=== PATIENT | male | born 1935 | race Caucasian/White ===

== ENCOUNTER 2016-09-15 07:50 | Day surgery (SDC) | payer MEDICARE, OTHER ==
--- NOTE | 2016-09-08 15:35 | PCM.ANEPRE ---
Anesthesia Pre-Op Review Reason for Review: pulmonary concerns- COPD, home O2 at noc Anesthesia Recommendations: Proceed with Procedure Chart Reviewed by: Candido Ray MD, MD September 08, 2016 15:35
[~2016-09-15] VITALS: Ht 180.3 cm; Wt 80.3 kg
[2016-09-15] VITALS (10 sets, daily range): BP systolic 116–157; BP diastolic 55–69; PULSE 44–51; RESP 10–16; O2SAT 96–99
--- NOTE | 2016-09-15 06:40 | PCM.HPANE ---
Patient Data Surgeon Admitting Provider: Attending Provider:Antolin Gaines DO Primary Care Physician:Devonte Persaud Other Provider:Dinorah Levine Anesthesia Reason for Visit Right Torn Medial Meniscus Ht/WT & BMI Height (Feet): 5 Height (Inches): 11 Weight (Kilograms): 84.10 Body Mass Index 25.00 Allergies Coded Allergies: No Known Allergies (Verified , 12/13/13) Past Anesthesia History Anesthesia History: Denies:: Abnormal Airway, Anesthesia Reactions, Difficult Intubation Diabetes History Hx Diabetes?: Yes (Hgb A1c 6.0 06/22/16) Glycemic Control: Insulin & Oral Medication MRSA MRSA: No Medications Blood Thinner: Aspirin Hypertension Medication: Yes Home Meds Incl Beta Teddy: No Reported Medications Diclofenac Gel (Voltaren Gel)100 Gm Tube1 Applic TOPICAL PRN For Pain #1 TUBE 09/08/16 Cholecalciferol (Vitamin D3) (Vitamin D3)2,000 Unit Tablet4,000 Unit PO DAILY 09/08/16 Montelukast (Singulair)10 Mg Ygqunt38 Mg PO HS Ref 0 09/08/16 Primidone 50 Mg Mvkmga783 Mg PO HS 30 Days 09/08/16 Pravastatin 40 Mg Cnixnl12 Mg PO DAILY Ref 0 09/08/16 Multivitamin (Multi Vitamin Daily)1 Each Tablet1 Each PO DAILY 30 Days Ref 0 09/08/16 Lisinopril 10 Mg Hiznre61 Mg PO DAILY 30 Days Ref 0 09/08/16 Insulin Glargine (Lantus U100 Insulin Vial)100 Unit/Ml Vial28 Unit SUBQ DAILY # 1 VIAL Ref 0 09/08/16 Ipratropium/Albuterol Sulfate (Iprat-Albut 0.5-3(2.5) mg/3 mL Inhalant Soln)3 Ml Ampul.neb3 Ml IH TID Ref 0 09/08/16 Glimepiride 4 Mg Tablet2 Mg PO DAILYAC #30 TABLET Ref 0 09/08/16 Fluoxetine 20 Mg Dgoyhl77 Mg PO DAILY Ref 0 09/08/16 Budesonide 1 Mg/2 Ml Ampul.neb0.5 Mg IH BID 09/08/16 Arformoterol Tartrate (Brovana)15 Mcg/2 Ml Vial.neb15 Mcg IH BID 09/08/16 Aspirin 81 Mg Kcipeq83 Mg PO DAILY Ref 0 09/08/16 Discontinued Reported Medications Albuterol Sulfate (Albuterol 5% Inh Soln)5 Mg/1 Ml Solution2.5 Mg NEB QID #1 BOTTLE Ref 0 Mix in nebulizer reservoir with sodium chloride nebulizer solution. As needed for Wheezing/sob 11/25/13 Cholecalciferol (Vitamin D3) (Vitamin D)2,000 Unit Capsule2,000 Unit PO DAILY 30 Days Ref 0 11/25/13 Vit C/E/Zn/Coppr/Lutein/Zeaxan (Ocuvite Lutein & Zeaxanthin Cp)1 Each Capsule1 Each PO DAILY 11/25/13 Primidone 50 Mg Pvuqib70 Mg PO HS 30 Days 11/25/13 Albuterol HFA 8.5 Gm Hfa.aer.ad2 Puff IH Q4-6H PRN For Shortness of Breath #1 INHALER Ref 0 as needed for wheezing/sob 11/25/13 Fluoxetine 20 Mg Hgxqrpf14 Mg PO DAILY 30 Days Ref 0 11/25/13 Diclofenac Gel (Voltaren Gel)100 Gm Gel..gram.1 % Tp Qid as needed 11/25/13 Glimepiride 1 Mg Tablet1 Mg PO DAILYAC #30 TABLET Ref 0 11/25/13 Insulin Glargine (Lantus U100 Insulin Vial)100 Unit/Ml Vial18 Unit SUBQ HS #1 VIAL Ref 0 11/25/13 Pravastatin 40 Mg Tpfote12 Mg PO PM 30 Days Ref 0 take in the evening for high cholesterol 11/25/13 Fluticasone/Salmeterol (Advair 250-50 Diskus)60 Puff/Inh Disk1 Puff IH BID #1 DISK Ref 0 11/25/13 Lisinopril 10 Mg Nkhmkx58 Mg PO DAILY 30 Days Ref 0 11/25/13 Multivitamin (Multi Vitamin Daily)1 Each Tablet1 Each PO DAILY 30 Days Ref 0 11/25/13 Aspirin (Aspir 81)81 Mg Tablet.dr81 Mg PO PM Ref 0 11/25/13 Discontinued Scripts Levofloxacin (Levaquin)750 Mg Eqcnyu688 Mg PO DAILY 3 Days Prov:Augustine Crawley MD 12/17/13 Prednisone (PredniSONE)20 Mg Ijdvow47 Mg PO DAILY 1 Day Prov:Augustine Crawley MD 12/17/13 Tiotropium [place] (Spiriva)18 Mcg Cap.w.dev18 Mcg IH DAILY #1 PKG Ref 0 Prov:Reji Ellis DO 11/27/13 History History of ENT Problems?: Yes HEENT History: Positive for:: Cataracts (both eyes cataract removal ) Hearing Problem Denies:: Abnormal Airway Difficult Intubation Dysphagia Glaucoma Sinus Problem TMJ Denture Type: Full- Upper Full- Lower Teeth Condition: No Teeth Hx of Heart Problems?: Yes Cardiovascular History: Positive for:: Hypertension Irregular Heartbeat (bradycardia ) Denies:: AICD Cardiac Surgery Chest Pain Congestive Heart Failure Edema Heart Murmur Pacemaker Peripheral Vascular Thrombophlebitis Hx of Respiratory Problem?: Yes Respiratory History: Positive for:: COPD Dyspnea Oxygen Administration (2L at noc) Use of Inhalers / NEBS Denies:: Asthma Chest Surgery Emphysema Hemoptysis Pneumonia Tuberculosis Use of C-PAP Machine Hx Neurologic Problems?: Yes Neurological History: Denies:: Alzheimer's Disease CVA Dementia Dizziness Headaches Multiple Sclerosis Parkinson's Disease (benign tremor -involuntary-intermittent ) Seizures Hx of GI Problems?: Yes Hx of Problems?: No Genitourinary History: Denies:: HX of Hemodialysis Kidney Stones Urinary Tract Infection HX of Peritoneal Dialysis: No Male Hx: Denies:: Prostate Problems Scrotal Mass Testicular Surgery Skin History: Denies:: History Skin Disorders? Pressure Ulcers Hx Musculoskeletal Problems?: Yes Musculoskeletal History: Positive for:: Musculoskeletal Trauma (right knee current admission problem) Osteoarthritis Denies:: Back Injury Fibromyalgia Joint Replacement Systemic Lupus Hx of Psycho/Social Problems?: Yes Psycho Social History: Positive for:: Hx Depression Denies:: Anxiety Bipolar Disorder Suicide Attempt Hx Surgeries?: Yes (galbladder removed, Right shoulder surgery, hernia repair, bunion removal ) Hx Any Other Health Problems?: Yes Other History: Positive for:: Endocrine Disease Hospitalization (hospitalized for COPD ) Denies:: Cancer Thyroid Disease History Blood Transfusions: Positive for:: Accept Blood Products? Denies:: Blood Transfuse Reaction Blood Transfusions Hx Diabetes: Yes (Hgb A1c 6.0 06/22/16) Hx Alcohol Use: NoHx Substance Use: No Smoking Status: Former Smoker Have You Smoked inLast 12 mo: No Stop/Bang S-Snoring: Do You Snore Loudly: No T-Tired: feel tired, fatigued: No O-Obsered: Observed not breath: No P-Blood Pressure: treated: Yes B- Body Mass Index > 35 kg/m2: No A- Age over 50: Yes N- Neck Large Circumference: No G- Gender Male: Yes ZOHAIB Total Score: 3 ZOHAIB Risk Assessment: Low Risk, <3 Yes Risk Assessment Category Category 1A: Patient has history of documented sleep apnea, and HAS NOT received any narcotic, sedative or anesthesia administration during this stay. Category 1B: Patient has history of documented sleep apnea, and HAS received any narcotic , sedative or anesthesia administration during this stay Category 2: Patient has SUSPECTED Obstructive Sleep Apnea, and HAS received any narcotic , sedative or anesthesia administration during this stay. Category 3: Patient has SUSPECTED Obstructive Sleep Apnea and HAS NOT received narcotic, sedative or anesthesia administration during this stay. Category 4: Outpatient in Procedural Areas with known sleep apnea or who screen positive for High Risk via the STOP/BANG questionnaire. Exam Exam General Appearance: Alert, Oriented X3, Cooperative, No Acute Distress HEENT/AIRWAY: MP 2 Lungs: Clear to Auscultation, Normal Air Movement Heart: Exam Unremarkable, Regular Rate/Rhythm, No Murmurs/Rubs/Gallops Plan Impression Patient chart reviewed, patient interviewed and anesthestic plan with risks, benefits, and alternatives discussed, and informed consent obtained. NPO per Anesth. Guidelines: Yes ASA Physical Status: ASA2 Mod Systemic Disease Anesthetic Plan: GA Bene/Risks/Altern/Consents: Yes HP Complete Prior to Induction: Yes Carlo Richardson MD September 15, 2016 06:39
[~2016-09-15 07:50] MED LIST: ARFO15VI2 IH; ASPI-973 PO; BUDE1AMP2 IH; CHOL200025 PO; DICL100G8 TOPICAL; FLUO20TA28 PO; GLIM4TAB2 PO; INSU100V7 SUBQ; IPRA3AMP IH; LISI10TA PO; MONT10TA20 PO; MULT-1018 PO; PRAV40TA PO; PRIM50TA PO
[2016-09-15] MEDS ORDERED: fentaNYL-PF 50 mCg/mL 2 mL Inj ONE (07:51)
[2016-09-15] MEDS ORDERED: Ondansetron 2 mg/mL 2 mL Inj ONE (07:51)
[2016-09-15] MEDS ORDERED: Propofol 10,000 mCg/mL 20 mL Inj ONE (07:51)
[2016-09-15] MEDS ORDERED: Dexamethasone 4 mg/mL Inj ONE (07:51)
[2016-09-15] MEDS ORDERED: Glycopyrrolate 0.2 MG/ML 1mL Inj ONE (07:51)
[2016-09-15] MEDS: Lactated Ringer's 1,000 ML IV SCH ×2 (07:54→09:30)
[2016-09-15] MEDS ORDERED: Lactated Ringer's 500 ML IV PRN (10:09)
[2016-09-15] MEDS ORDERED: Lactated Ringer's 1,000 ML IV SCH (10:09)
[2016-09-15] MEDS ORDERED: Atropine 0.4 mg/mL Inj IVPUSH PRN (10:10)
[2016-09-15] MEDS ORDERED: Labetalol 5 mg/mL 4 mL Inj IV PRN (10:10)
[2016-09-15] MEDS ORDERED: Phenylephrine 10,000 mCg/mL Inj IVPUSH PRN (10:10)
[2016-09-15] MEDS ORDERED: HYDROmorphone 1 mg/mL Inj IVPUSH PRN (10:10)
[2016-09-15] MEDS ORDERED: MetoCLOpramide 5 mg/mL 2 mL Inj IVPUSH PRN (10:10)
[2016-09-15] MEDS ORDERED: fentaNYL-PF 50 mCg/mL 2 mL Inj IVPUSH PRN (10:10)
[2016-09-15] MEDS ORDERED: Dexamethasone 4 mg/mL Inj IVPUSH PRN (10:10)
[2016-09-15] MEDS ORDERED: Ondansetron 2 mg/mL 2 mL Inj IVPUSH PRN (10:10)
[2016-09-15] MEDS ORDERED: EPHEDrine Sulfate 50 mg/mL Inj IVPUSH PRN (10:10)
[2016-09-15] MEDS ORDERED: Lidocaine 2%-Epi 1:100,000 20 mL Inj INFILTRATE ONE (10:17)
[2016-09-15] MEDS ORDERED: Ropivacaine-PF 0.5% 30 mL Inj INFILTRATE ONE (10:36)
[2016-09-15] MEDS ORDERED: Acetaminophen IV 1,000 MG in IV Premix 1 EACH IV ONE (10:55)
[2016-09-15] MEDS ORDERED: HYDROcodone-APAP 5-325 mg Tablet PO PRN (10:55)
[2016-09-15] MEDS ORDERED: hydrOXYzine Pamoate 25 mg Capsule PO PRN (10:55)
--- NOTE | 2016-09-15 10:59 | PCM.ANEP1 ---
Post Anesthesia PACU Phase 1 Assessment Vital Signs Vital Signs Date Time Temp Pulse Resp B/P Pulse Ox O2 Delivery O2 Flow Rate FiO2 09/15/16 10:55 51 12 129/57 98 Simple Mask 5 09/15/16 10:45 51 12 122/59 97 Simple Mask 5 09/15/16 10:43 35.7 49 12 116/55 97 Simple Mask 5 09/15/16 08:35 36.0 44 16 157/63 99 Room Air Anesthetic Administered: GA Level of Alertness: Sleepy, easy to arouse ARMENDARIZ's with Equal Strength: Yes Pain: No Nausea or Vomiting: No CV Function and Hydration: No Airway Device: Oxygen Delivery: Simple Mask Lungs: Clear to Auscultation, Normal Air Movement Dermatome Level: Full Sensation PACU Phase 2 Assessment Complications: No Follow up Care: No Patient Instructions Provided: N/A Carlo Richardson MD September 15, 2016 10:59
--- NOTE | 2016-09-15 11:10 | OP ---
[address] [address] OPERATIVE REPORT PATIENT: KENDRA RUDD : 1935 MR#: [id number] ADMIT: 09/15/2016 JOB ID: [id number] DATE OF SURGERY: 09/15/2016 PREOPERATIVE DIAGNOSIS(ES): Right knee torn medial meniscus. POSTOPERATIVE DIAGNOSIS(ES): Right knee torn medial meniscus. PROCEDURE: Right knee video arthroscopy with partial medial meniscectomy. SURGEON: Antolin Gaines MD. ANESTHESIA: General. INDICATIONS: The patient is a 80-year-old male who twisted his knee injuring his right medial meniscus this winter. He had an MRI confirming the diagnosis. We discussed treatment options for this, and he wished to proceed with a knee arthroscopy. We discussed the risks, benefits and possible complications of surgery including, but not limited to, injury to nerves and vessels, infection, bleeding, incomplete relief symptoms, stiffness and need for additional procedures. The patient had good understanding. All questions were answered. He wished to proceed. PROCEDURE IN DETAIL: The patient was brought to the operating room. He was given a preoperative general anesthetic. The right lower extremity was sterilely prepped and draped. An incision was made over the anterolateral knee at the level of joint line. A blunt trocar was introduced into the knee. Inspection was undertaken. He was found to have a tear in the medial meniscus posterior horn. A medial portal was established under needle localization. His articular surface was found to be in relatively good condition considering his age with some minor C1 and C2 changes. His meniscus tear was resected back to a stable base with a combination of biters and bhavesh. His ACL was found to be intact. His lateral compartment was in excellent condition without tear. His patellofemoral compartment had some minor degenerative changes. C2 chondromalacia otherwise in good condition. The scope was then removed. The portals were closed with interrupted nylon suture. Naropin was added as an adjunct local anesthetic. Sterile dressings were applied. The patient tolerated the procedure well. Blood loss was minimal. POSTOPERATIVE PROTOCOL: Have the patient weightbear to tolerance. Ice and elevate. Use crutches or walker as needed, and follow up in two weeks or sooner if needed.
== END 2016-09-15 23:59 | disposition home or self-care (01) ==
LOC: SAS 07:50
PROVIDERS: ATTEND Orthopaedic Surgery
DX: S83.231D Complex tear of medial meniscus, current injury, right knee, subsequent encounter (principal); I10 Essential (primary) hypertension; E78.5 Hyperlipidemia, unspecified; E11.9 Type 2 diabetes mellitus without complications; J44.9 Chronic obstructive pulmonary disease, unspecified; N40.0 Benign prostatic hyperplasia without lower urinary tract symptoms; K21.9 Gastro-esophageal reflux disease without esophagitis; F32.9 Major depressive disorder, single episode, unspecified; W00.0XXD Fall on same level due to ice and snow, subsequent encounter; Y92.9 Unspecified place or not applicable; Z79.84 Long term (current) use of oral hypoglycemic drugs; Z79.4 Long term (current) use of insulin; Z99.81 Dependence on supplemental oxygen; Z79.82 Long term (current) use of aspirin; Z87.891 Personal history of nicotine dependence
CPT/HCPCS: 29881; J0131; J1100; J2405; J2795; J3010; J7120

== ENCOUNTER 2016-10-14 09:25 | Emergency (ER) | payer MEDICARE, OTHER ==
[~2016-10-14] VITALS: Ht 180.3 cm; Wt 81.8 kg
[2016-10-14 09:33] VITALS: BP 148/52; PULSE 48; RESP 16; O2SAT 100
--- NOTE | 2016-10-14 09:54 | ED.REPORT ---
HPI-General Illness Date of Service Oct 14, 2016 ED Provider: Arturo Kumari DO Patient is a 81 year old male with a history of diabetes, COPD and hypertension who presents to the ED via EMS due to hypoglycemia. Per the patient's , he was diaphoretic, confused and he complained of tingling in his lips. He denies abdominal pain, vomiting or extremity pain. The patient reports that he took his normal dose of lantis and when he measured his sugar it was 28. He then ate breakfast and an hour later his sugar was 50. When EMS arrived, his glucose measured 65 and just prior to arrival to the ED his sugar read 75. Nursing Notes Stated Complaint: LOW BLOOD SUGAR Chief Complaint: General Complaint Nursing Notes Reviewed: Yes Allergies: Coded Allergies: No Known Allergies (Verified , 10/14/16) Scheduled Arformoterol Tartrate (Brovana) 15 Mcg/2 Ml Vial.neb 15 MCG IH BID Aspirin (Aspirin) 81 Mg Tablet 81 MG PO DAILY Budesonide (Budesonide) 1 Mg/2 Ml Ampul.neb 0.5 MG IH BID Cholecalciferol (Vitamin D3) (Vitamin D3) 2,000 Unit Tablet 4,000 UNIT PO DAILY Fluoxetine (Fluoxetine) 20 Mg Tablet 20 MG PO DAILY Glimepiride (Glimepiride) 4 Mg Tablet 2 MG PO DAILYAC Insulin Glargine (Lantus U100 Insulin Vial) 100 Unit/Ml Vial 28 UNIT SUBQ DAILY Ipratropium/Albuterol Sulfate (Iprat-Albut 0.5-3(2.5) mg/3 mL Inhalant Soln) 3 Ml Ampul.neb 3 ML IH TID Lisinopril (Lisinopril) 10 Mg Tablet 10 MG PO DAILY Montelukast (Singulair) 10 Mg Tablet 10 MG PO HS Multivitamin (Multi Vitamin Daily) 1 Each Tablet 1 EACH PO DAILY Pravastatin (Pravastatin) 40 Mg Tablet 40 MG PO DAILY Primidone (Primidone) 50 Mg Tablet 200 MG PO HS Scheduled PRN Diclofenac Gel (Voltaren Gel) 100 Gm Tube 1 APPLIC TOPICAL PRN For Pain General Time Seen by MD: 09:39 Chief Complaint Other (hypoglycemia) Hx Obtained From: Patient, Spouse Arrived By: Ambulance Sudden in Onset?: Yes Onset Occurred: 1 - 4 hours ago Symptom Duration: Since onset Severity: Current: No pain currently Recent Healthcare: No recent hospitalization, Recent doctor visit Past Medical History Past Medical History Reports: COPD, Diabetes mellitus, Hypertension Smoking History Former Smoker Social History Other Social History: Good social support, Ambulatory Status Independent Review of Systems tingling in lips Full Review of Systems Constitutional: Denies: Chills, Fever GI: Denies: Abdominal pain, Nausea, Vomiting Musculoskeletal: Denies: Extremity pain Skin: Reports Diaphoresis Psychiatric: Reports: Confusion Complete sys rev & neg: except as marked. Physical Exam Vital Signs Vital Signs Date Time Temp Pulse Resp B/P Pulse Ox O2 Delivery O2 Flow Rate FiO2 10/14/16 11:01 58 16 96 Room Air 10/14/16 09:33 35.6 48 16 148/52 100 Room Air Initial VS: Reviewed General/Constitutional: Awake, Alert, No acute distress, Well appearing Head / Eyes: Atraumatic, Normocephalic, PERRL, EOMI Respiratory / Chest: Atraumatic, Breath sounds NL, Breath sounds = bilat, No respiratory distress Cardiovascular: Heart rate NL, Regular rhythm, Heart sounds NL Abdomen: Atraumatic, Soft, Non-tender Skin: Atraumatic, Color NL, No rash, Warm, Dry Neurologic: Oriented X3, Speech NL, No motor deficits, No sensory deficits Psychiatric: Affect NL, Mood NL Interpretation & Diagnostics Lab Results Interpretation Result Diagram: 10/14/16 0959 10/14/16 0959 Test 10/14/16 09:59 White Blood Count 9.8th/mm3 (3.8-10.1) Red Blood Count 4.62mil/mm3 (4.40-5.80) Hemoglobin 14.5g/dL (13.8-17.2) Hematocrit 42.6% (41.0-50.0) Mean Corpuscular Volume 92.2fL (81-100) Mean Corpuscular Hemoglobin 31.4pg (27.0-35.0) Mean Corpuscular Hemoglobin Concent 34.0% (32.0-37.0) Red Cell Distribution Width 13.5% (12.3-15.4) Platelet Count 197bil/L (150-400) Neutrophils (%) (Auto) 74.6% (40-74) Lymphocytes (%) (Auto) 12.7% (14-46) Monocytes (%) (Auto) 8.3% (4-12) Eosinophils (%) (Auto) 3.3% (0-5) Basophils (%) (Auto) 0.6% (0-3) Sodium Level 142mEq/L (134-144) Potassium Level 4.1mEq/L (3.5-5.2) Chloride Level 105mEq/L (97-108) Carbon Dioxide Level 23mmol/L (18-29) Blood Urea Nitrogen 17mg/dL (8-27) Creatinine 0.76mg/dL (0.76-1.27) Estimat Glomerular Filtration Rate 105mL/min (>59) Glucose Level 52mg/dL (60-99) Calcium Level 9.3mg/dL (8.5-10.1) Re-Eval/Medical Decision Med Decision/Clinical Course Glucoses have been stable for several hours. It should be noted the patient is on glimepiride however he did not take his dose today. He feels comfortable going home, checking his glucoses regularly, recommend holding glimepiride until seen or discussed with his primary care. Return and follow-up precautions given Time of Eval: 11:40 Patient Status: Condition improved Re-Evaluation/Progress Note: Patient's reports that his glucose has gone up to 153 after eating. Discussed plan to continue checking a few more times before being able to be discharged. Time of Eval: 12:48 Patient Status: Condition improved Re-Evaluation/Progress Note: Glucose was 227. Discussed plan for discharge. The patient understands and agrees to plan. All questions were addressed. Counseled Regarding: Diagnosis, Lab results, Need for follow-up, When/why to return to ED Discharge & Departure Primary Impression: Hypoglycemia Disposition: Home Discharge Condition All VS Reviewed: Yes Condition: Stable Patient Instructions: Hypoglycemia in a Person with Diabetes (ED) Additional Instructions: Your glucoses have been stable. Check your glucose every 2 hours once you are home. Eat frequent meals. Stop taking your glimeperide until you discuss this with your primary care doctor. Return to the ER, or call 911 if you develop recurrent low blood sugars, altered mental status, or any other concerns. Referrals: Prisca Garay (PCP) Scribe Attestation Portions of this note were transcribed by Abida Dupree. I, Dr. Kamran Lau personally performed the history, physical exam and medical decision-making; I reviewed and confirmed the accuracy of the information in the transcribed note. Signed by: Keegan Crouch, 10/14/16 and 1310 copies to: Prisca Garay Timothy S DO Oct 14, 2016 09:54 Frida Dupree Oct 14, 2016 10:15
[2016-10-14 10:07] LABS: BASOPHILS % (AUTO) 0.6 % (0-3); EOSINOPHILS % (AUTO) 3.3 % (0-5); MONOCYTES % (AUTO) 8.3 % (4-12); Mean Corpuscular Hemoglobin 31.4 pg (27.0-35.0); Mean Corpuscular Volume 92.2 fL (81-100); NEUTROPHILS % (AUTO) 74.6 % (40-74); Platelet Count 197 bil/L (150-400)
[2016-10-14] MEDS ORDERED: Albuterol-Ipratropium 3 mL Inhalation Solution NEB ONE (10:50)
[2016-10-14 11:01] VITALS: PULSE 58; RESP 16; O2SAT 96
== END 2016-10-14 13:29 | disposition home or self-care (01) ==
LOC: EDBD 09:25 → EDUNIT# 09:25 → SED 09:25
DX: E11.649 Type 2 diabetes mellitus with hypoglycemia without coma (principal); J44.9 Chronic obstructive pulmonary disease, unspecified; I10 Essential (primary) hypertension; Z87.891 Personal history of nicotine dependence; Z79.82 Long term (current) use of aspirin; Z79.4 Long term (current) use of insulin
CPT/HCPCS: 36415; 80048; 81002; 82948; 85025; 94664; 96360; 99284; J7620